=== PATIENT | female | born 1930 | race Caucasian/White ===

== ENCOUNTER 2017-11-01 12:38 | Emergency (ER) | payer MEDICARE, OTHER ==
[2017-11-01] MEDS ORDERED: Take Home: Cephalexin 500 MG Cap, 4 Cap Pack PO ONE (13:13)
--- NOTE | 2017-11-01 13:22 | EDM.PDOC ---
ED HPI GENERAL MEDICAL PROBLEM - General Chief Complaint: Lower Extremity Injury/Pain Stated Complaint: leg pain/redness Time Seen by Provider: 11/01/17 12:58 Source of Information: Reports: Patient History Limitations: Reports: No Limitations - History of Present Illness INITIAL COMMENTS - FREE TEXT/NARRATIVE: She comes in with 1 day history of redness left ankle. Patient states that she noticed it was getting warmly last night and this morning the redness is a little bit more significant and minor swelling to the medial side of the leg. Patient denies having any dizziness lightheadedness or nausea vomiting. She also denies having any cuts or abrasions to that area or following or tripping. Patient states she is able to ambulate with a provocation and that it does not hurt with range of motion. She is strictly concerned with the redness on the area. Onset: Sudden Location: Reports: Lower Extremity, Left Severity: Mild Improves with: Reports: None Worsens with: Reports: None - Related Data Allergies Allergy/AdvReac Type Severity Reaction Status Date / Time No Known Allergies Allergy Verified 11/01/17 12:48 Home Meds: Home Meds Ca/D3/Mag#11/Zinc/Financial Adviser/Florian/Bor [Caltrate Plus Tablet] 1 each PO BID 11/01/17 [ History] Clindamycin Phosphate [Cleocin T 1% Gel] 1 applic TOP BID 11/01/17 [History] Furosemide [Furosemide] 40 mg PO DAILY 11/01/17 [History] Losartan [Cozaar] 25 mg PO DAILY 11/01/17 [History] Meclizine [Antivert] 25 mg PO BID PRN 11/01/17 [History] Metoprolol Succinate [Toprol XL 50mg] 50 mg PO DAILY 11/01/17 [History] Multivitamin [Multivitamins] 1 each PO DAILY 11/01/17 [History] Past Medical History HEENT History: Reports: Other (See Below) Other HEENT History: hemianopsia Cardiovascular History: Reports: Hypertension Genitourinary History: Reports: Other (See Below) Other Genitourinary History: nephrolithiasis, urge incontinence 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: Musculoskeletal History: Reports: Fracture, Osteoporosis, Other (See Below) Other Musculoskeletal History: patella fracture, low back pain, vertigo Endocrine/Metabolic History: Reports: Obesity/BMI 30+ Hematologic History: Reports: Anemia, Iron Deficiency Oncologic (Cancer) History: Reports: Other (See Below) Other Oncologic History: melanoma of nose, basal cell carcinoma lip - Past Surgical History HEENT Surgical History: Reports: Adenoidectomy, Cataract Surgery, Tonsillectomy GI Surgical History: Reports: Appendectomy Musculoskeletal Surgical History: Reports: Other (See Below) Other Musculoskeletal Surgeries/Procedures:: left knee surgery Oncologic Surgical History: Reports: Other (See Below) Other Oncologic Surgeries/Procedures: excision of melanoma Social & Family History - Tobacco Use Smoking Status *Q: Never Smoker - Recreational Drug Use Recreational Drug Use: No Review of Systems - Review of Systems Review Of Systems: See Below Constitutional: Reports: No Symptoms Eyes: Reports: No Symptoms Ears: Reports: No Symptoms Nose: Reports: No Symptoms Respiratory: Reports: No Symptoms Cardiovascular: Reports: No Symptoms GI/Abdominal: Reports: No Symptoms Musculoskeletal: Reports: No Symptoms Skin: Reports: Other (redness to the lower left ankle region ) Neurological: Reports: No Symptoms Psychiatric: Reports: No Symptoms ED EXAM, GENERAL - Physical Exam Exam: See Below Exam Limited By: No Limitations General Appearance: Alert, WD/WN, No Apparent Distress Head: Atraumatic, Normocephalic Respiratory/Chest: No Respiratory Distress, Lungs Clear, Normal Breath Sounds, No Accessory Muscle Use, Chest Non-Tender Cardiovascular: Normal Peripheral Pulses, Regular Rate, Rhythm GI/Abdominal: Normal Bowel Sounds, Soft, Non-Tender Extremities: Increased Warmth, Redness Neurological: Alert, Oriented Psychiatric: Normal Affect, Normal Mood Skin Exam: Warm, Dry, Intact, Normal Color Course - Vital Signs Last Recorded V/S: Last Vital Signs Temp 37.1 C 11/01/17 12:45 Pulse 89 11/01/17 12:45 Resp 18 11/01/17 12:45 BP 182/68 H 11/01/17 12:45 Pulse Ox 96 11/01/17 12:45 - Orders/Labs/Meds Orders: Active Orders 24 hr Category Date Time Status Cephalexin [Take Home: Cephalexin 500 MG, 4 Cap Pack] Med 11/01/17 13:13 Once 1 packet PO ONETIME ONE Departure - Departure Time of Disposition: 13:25 Disposition: Home, Self-Care 01 Condition: Good Clinical Impression: Cellulitis of foot - Discharge Information Instructions: Cellulitis, Adult Additional Instructions: drink plenty of water Watch the area and if the area progresses or fever arise return to the ED. Keep foot elevated Keep area clean Wear supporting shoes to prevent falls/trips Take antibiotic as prescribed Follow up with PCP if problem continues despite taking antibiotic - My Orders Last 24 Hours: My Active Orders 11/01/17 13:13 Cephalexin [Take Home: Cephalexin 500 MG, 4 Cap Pack] 1 packet PO ONETIME ONE - Assessment/Plan Last 24 Hours: My Active Orders 11/01/17 13:13 Cephalexin [Take Home: Cephalexin 500 MG, 4 Cap Pack] 1 packet PO ONETIME ONE
[2017-11-01] MEDS ORDERED: Cephalexin 500 MG Cap PO ONE (13:25)
== END 2017-11-01 13:33 | disposition home or self-care (01) ==
LOC: VM.ED 12:38
DX: L03.116 Cellulitis of left lower limb (principal); I10 Essential (primary) hypertension; Z79.899 Other long term (current) drug therapy
CPT/HCPCS: 99283; A9270